=== PATIENT | female | born 1935 | race Caucasian/White ===

== ENCOUNTER 2018-04-02 14:37 | Inpatient (IN) ==
[2018-04-02] MEDS ORDERED: Ipratropium/Albuterol Neb 3 ML IH PRN (16:06)
[2018-04-02] MEDS: *HR* Warfarin 5 MG TABLET PO SCH (17:08)
[2018-04-02] MEDS: Vancomycin Oral Soln 125 MG/2.5 ML UDC PO SCH ×2 (17:09→22:00)
[2018-04-03 06:50] LABS: Basophils % 0.3 %; Eosinophils # 0.2 K/mcL (0.0-0.6); Eosinophils % 3.6 %; Hematocrit 27.4 % (35.3-44.9); Hemoglobin 9.4 g/dL (11.5-15.4); Immature Granulocytes % 0.3 % (0-4); Lymphocytes # 1.4 K/mcL (0.6-4.6); Lymphocytes % 21.4 %; Mean Corpuscular HGB Conc 34.3 g/dL (31.6-35.5); Mean Corpuscular Hemoglobin 34.9 pg (28.0-33.3); Mean Corpuscular Volume 101.9 fL (83.0-100.0); Mean Platelet Volume 10.7 fL (9.4-12.4); Monocytes # 0.4 K/mcL (0.0-1.3); Monocytes % 6.7 %; Neutrophils # 4.4 K/mcL (1.6-8.9); Platelet Count 210 K/mcL (140-400); Red Blood Count 2.69 M/mcL (3.82-4.97); Red Cell Distribution Width 17.6 % (11.5-14.5); Segmented Neutrophils % 67.7 %
[2018-04-03 07:09] LABS: Activated Partial Thrombo Time 41.9 Seconds (26.0-36.0)
[2018-04-03 07:12] LABS: BUN/Creatinine Ratio 17 (6-26); Blood Urea Nitrogen 8 mg/dL (8-23); Calcium 8.4 mg/dL (8.6-10.3); Carbon Dioxide 35 mEq/L (23-29); Chloride 96 mEq/L (98-107); Glucose 103 mg/dL (70-105); Osmolality,Calculated 279 (280-300); Potassium 4.2 mEq/L (3.5-5.1); Sodium 135 mEq/L (136-145); eGFR For Non-African Americans > 60 (> 60)
[2018-04-03 07:14] LABS: INR 2.8
[2018-04-03] MEDS ORDERED: Loratadine 10 MG TABLET PO SCH (09:00)
[2018-04-03] MEDS: Multivit/Ca/Min/Fe/FA 1 TAB TABLET PO SCH (09:08)
[2018-04-03] MEDS: Furosemide 40 MG TABLET PO SCH (09:09)
[2018-04-03] MEDS: Aspirin Enteric Coated 81 MG Tablet PO SCH (09:10)
[2018-04-03] MEDS: Vancomycin Oral Soln 125 MG/2.5 ML UDC PO SCH ×4 (09:10→20:50)
[2018-04-03] MEDS: Diltiazem CD (24hr) 180 MG CAPSULE PO SCH (09:10)
--- NOTE | 2018-04-03 12:08 | Internal Med History&Physical ---
Date of Encounter: 04/03/18 Time of Encounter: 11:35 Assessment and Plan (1) Congestive heart failure Current visit: No Status: Acute Continue Cozaar and Lasix. Qualifiers: Heart failure type: diastolic Heart failure chronicity: acute on chronic Qualified Code(s): I50.33 - Acute on chronic diastolic (congestive) heart failure (2) Atrial fibrillation with RVR Current visit: No Status: Acute Continue Cardizem for rate control and Coumadin for CVA prophylaxis. (3) C. difficile colitis Current visit: No Status: Acute Continue oral vancomycin through April 08. (4) Physical deconditioning Current visit: No Status: Acute Physical therapy and occupational therapy evaluations with ongoing interventions have been ordered. (5) DVT (deep venous thrombosis) Current visit: No Status: Acute Continue Coumadin Qualifiers: DVT location: upper extremity Affected thrombotic vein of extremity: axillary Chronicity: acute Laterality: right Qualified Code(s): I82.A11 - Acute embolism and thrombosis of right axillary vein (6) Anemia Current visit: No Status: Acute Check anemia testing in a.m. Monitor CBC. Qualifiers: Anemia type: unspecified type Qualified Code(s): D64.9 - Anemia, unspecified Internal Medicine - H&P: HPI Chief complaint: DVT, AF, C. difficile Admitted From: Hospital to Hospital Transfer Plans for Post Hospital Care: Home History of present illness: Ms. Abebe is a 82 year old female who was hospitalized at [facility] March 07-April 02 after presenting with worsening abdominal discomfort in a ventral wall hernia. She had robotic surgical repair March 08. She required a second surgery March 23 for incisional hernia. Her stay was complicated by development of DVT at the PICC insertion site. She had new onset atrial fibrillation. She also developed C. difficile colitis. Following stabilization she was discharged to [facility] swing bed for ongoing care needs. She states she feels weak at the present time but denies significant pain or dyspnea. Past Med Surg Social Fam HX - Past Medical History Medical history: hyperlipidemia, hypertension, other Additional medical history: artifical heart valve Psychiatric history: no psych history - Past Surgical History Surgical History: non-contributory, heart valve replacement Additional surgical history: OvR - Social History Smoking Status: Never smoker Smokeless Tobacco Status: No Alcohol use: occasionally Drug use: none - Family History Mother Adopted: No Family Member Ethnicity: Non- Living Status: Hx Family Cardiac Disorders: Yes (Passed during valve replacement surgery) Hx Family Respiratory Disorders: No Hx Family Cancer: No Hx Family GI Disorders: No Hx Family Genitourinary Disorders: No Hx Family Endocrine Disorder: No Hx Family Musculoskeletal Disorders: No Hx Family Neuromuscular Disorders: No Hx Family Neurologic Disorders: No Hx Family HEENT Disorders: No Hx Family Autoimmune Disorders: No Hx Family Reproductive Disorders: No Hx Family Psychosocial Disorders: No Hx Family Medical Disorders: No Internal Medicine - H&P: Meds Aspirin [Lo-Dose Aspirin EC] 81 mg PO DAILY 03/02/18 [History] Atorvastatin [Lipitor] 20 mg PO HS 03/02/18 [History] Lidocaine Patch [Lidoderm 5% patch] 1 each TP DAILY PRN #30 adh..patch 03/02/18 [Rx] Loratadine [Allergy Relief] 10 mg PO DAILY 03/02/18 [History] Multivit-Min/FA/Lycopen/Lutein [Adults 50+ Multivitamin Tablet] 1 tab PO DAILY 03/02/18 [History] Diltiazem CD (24hr) [Cardizem CD] 180 mg PO DAILY #30 cap.er.24h 04/02/18 [Rx] Docusate [Colace] 100 mg PO BID PRN capsule 04/02/18 [Rx] Ferrous Sulfate 325 mg PO DAILY@0800 #30 tablet 04/02/18 [Rx] Furosemide [Lasix] 20 mg PO DAILY #30 tablet 04/02/18 [Rx] Ipratropium/Albuterol Neb [Duoneb] 3 ml IH [id number] PRN inhsol 04/02/18 [Rx] Losartan [Cozaar] 25 mg PO DAILY #0 tablet 04/02/18 [Rx] Vancomycin Oral Soln [Firvanq] 125 mg PO QID 7 Days #28 udc 04/02/18 [Rx] Warfarin [Coumadin] 2.5 mg PO 1800 #7 tablet 04/02/18 [Rx] 3 Allergy/AdvReac Type Severity Reaction Status Date / Time lisinopril AdvReac Cough Verified 03/06/18 20:08 All Systems PM: A 10-system review of systems was performed and is negative for pertinent findings except as documented above in the HPI. Review of systems: Gen.: Her weight has decreased from 61.915 kg in May 2015 to 56.784 kg on admission now. Cardiovascular: She has hypertension. She had a heart catheterization November 2014 at [facility] which showed no significant coronary artery disease requiring intervention. She had aortic stenosis and TAVR was performed. She denies heart failure [place] or pulmonary embolism. She had recent right arm DVT at site of PICC line. Echocardiogram 03/11/2018 showed LVEF of 55% with normal functioning aortic valve (status post TAVR). There was mild mitral stenosis and mild LV diastolic dysfunction reported. Respiratory: She smoked from age [age] up to 1 pack per day. She does not have known lung disease or were oxygen at home. She has not been tested for sleep apnea. 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 She is status post appendectomy. She had recent hernia surgeries as per history of present illness. She developed C. difficile postoperatively. : She has had UTIs in the past but denies other kidney or bladder disorders Neurologic: She denies large distribution strokes or seizures. Endocrine: She has hyperlipidemia but denies diabetes or thyroid disease Hematology/oncology: she denies blood disorders or cancers . She had recent anemia requiring blood transfusion. Psychiatric: she denies anxiety depression or other mental health issues Musk skeletal: she denies arthritis gout or osteoporosis. She has had bilateral wrist fracture repair. - Constitutional Vitals: Temp Pulse Resp BP Pulse Ox 97.9 F 110 15 118/70 95 04/02/18 19:14 04/03/18 10:30 04/02/18 19:14 04/03/18 09:05 04/03/18 10:30 Exam: Gen.: She is well developed well-nourished female resting comfortably in a chair at bedside who appears in no acute distress HEENT: Head is atraumatic and normal cephalic. Eyes: EOMI. There is no scleral icterus. Mouth: Mucosa is moist. Neck: Supple and nontender. There is no thyromegaly or adenopathy noted. Heart: Regular without murmurs gallops or ectopics. Rate is approximately 108/ m. Lungs: No wheezes or crackles are heard. Abdomen: Soft and nontender. No masses or guarding are noted. Exam is limited because she is in the seated position. She has ecchymosis in the lower abdominal wall. She has a healing incision the left abdominal area from recent surgery. Extremities: She is wearing DIANE hose bilaterally. There is no pitting edema palpated through the hose. 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 Neurologic: Mental status: She is talkative and a good historian. Cranial nerves: Smile is symmetric. Forehead wrinkles bilaterally. Tongue protrudes midline. EOMI. Motor: There is no pronator drift. Cerebellar: Finger to nose is intact bilaterally. Skin: Warm and dry Internal Med - H&P Results - Labs CBC & Chem 7: 04/03/18 06:30 04/03/18 06:30 Labs: Short CBC 04/03/18 Range/Units 06:30 WBC 6.5 (4.3-11.1) K/mcL Hgb 9.4 L (11.5-15.4) g/dL Hct 27.4 L (35.3-44.9) % Plt Count 210 (140-400) K/mcL Neutrophils # 4.4 (1.6-8.9) K/mcL BMP 04/03/18 06:30 Sodium 135 L Potassium 4.2 Chloride 96 L Carbon Dioxide 35 H BUN 8 Creatinine 0.46 L Glucose 103 Calcium 8.4 L - VTE Documentation of Mechanical Device: Graduated compression elastic hosiery
[2018-04-03] MEDS: *HR* Warfarin 5 MG TABLET PO SCH (16:43)
[2018-04-04 06:01] LABS: Basophils % 0.4 %; Eosinophils # 0.3 K/mcL (0.0-0.6); Eosinophils % 4.4 %; Hematocrit 28.9 % (35.3-44.9); Hemoglobin 10.4 g/dL (11.5-15.4); Immature Granulocytes % 0.5 % (0-4); Lymphocytes # 2.2 K/mcL (0.6-4.6); Lymphocytes % 30.2 %; Mean Corpuscular Hemoglobin 36.9 pg (28.0-33.3); Mean Corpuscular Volume 102.5 fL (83.0-100.0); Mean Platelet Volume 11.1 fL (9.4-12.4); Monocytes # 0.5 K/mcL (0.0-1.3); Monocytes % 6.2 %; Neutrophils # 4.3 K/mcL (1.6-8.9); Platelet Count 258 K/mcL (140-400); Red Blood Count 2.82 M/mcL (3.82-4.97); Red Cell Distribution Width 18.1 % (11.5-14.5); Segmented Neutrophils % 58.3 %
[2018-04-04 06:06] LABS: INR 2.7; Prothrombin Time 30.7 Seconds (9.4-12.1)
[2018-04-04 06:19] LABS: Alanine Aminotransferase 53 Units/L (7-52); Albumin 2.9 g/dL (3.5-5.7); Albumin/Globulin Ratio 0.8 (1.1-2.2); Alkaline Phosphatase 108 Units/L (34-104); Aspartate Amino Transferase 31 Units/L (13-39); BUN/Creatinine Ratio 24 (6-26); Bilirubin,Total 0.9 mg/dL (0.3-1.0); Blood Urea Nitrogen 11 mg/dL (8-23); Calcium 8.8 mg/dL (8.6-10.3); Carbon Dioxide 33 mEq/L (23-29); Chloride 93 mEq/L (98-107); Globulin 3.5 g/dL (2.4-3.5); Glucose 92 mg/dL (70-105); Magnesium 1.9 mg/dL (1.6-2.6); Osmolality,Calculated 273 (280-300); Potassium 3.8 mEq/L (3.5-5.1); Sodium 132 mEq/L (136-145); Total Protein 6.4 g/dL (6.4-8.9); eGFR For Non-African Americans > 60 (> 60)
[2018-04-04 09:04] LABS: % Iron Saturation 11 % (15-50); Iron 30 mcg/dL (50-170); Transferrin 197 mg/dL (203-362)
[2018-04-04 09:22] LABS: Ferritin 506 ng/mL (10-120)
[2018-04-04 09:28] LABS: Folate 16.3 ng/mL (3.0-16.0)
[2018-04-04] MEDS: Furosemide 40 MG TABLET PO SCH (10:06)
[2018-04-04] MEDS: Vancomycin Oral Soln 125 MG/2.5 ML UDC PO SCH ×4 (10:06→21:22)
[2018-04-04] MEDS: Diltiazem CD (24hr) 180 MG CAPSULE PO SCH (10:06)
[2018-04-04] MEDS: Multivit/Ca/Min/Fe/FA 1 TAB TABLET PO SCH (10:06)
[2018-04-04] MEDS: Aspirin Enteric Coated 81 MG Tablet PO SCH (10:07)
[2018-04-04] MEDS: *HR* Warfarin 5 MG TABLET PO SCH (17:11)
--- NOTE | 2018-04-04 17:38 | Internal Med Progress Note ---
Date of Encounter: 04/04/18 Time of Encounter: 17:30 - Assessment and plan (1) Congestive heart failure Current Visit: No Status: Acute Assessment and plan: April 04. Continue Lasix. Will decrease Cozaar and use low-dose Toprol to better control heart rate. Qualifiers: Heart failure type: diastolic Heart failure chronicity: acute on chronic Qualified Code(s): I50.33 - Acute on chronic diastolic (congestive) heart failure (2) Atrial fibrillation with RVR Current Visit: No Status: Acute Assessment and plan: April 04. Continue Cardizem and Coumadin. Add low-dose Toprol (3) C. difficile colitis Current Visit: No Status: Acute Assessment and plan: April 04. Continue oral vancomycin through April 08. (4) Physical deconditioning Current Visit: No Status: Acute Assessment and plan: April 04. Continue therapy interventions (5) DVT (deep venous thrombosis) Current Visit: No Status: Acute Assessment and plan: April 04. Continue Coumadin Qualifiers: DVT location: upper extremity Affected thrombotic vein of extremity: axillary Chronicity: acute Laterality: right Qualified Code(s): I82.A11 - Acute embolism and thrombosis of right axillary vein (6) Anemia Current Visit: No Status: Acute Assessment and plan: April 04. Anemia testing showed iron 30, transferrin saturation 11%, transferrin 197, ferritin 506, B12 990, and folate 16.3. Hemoglobin improved to 10.4. Observe Qualifiers: Anemia type: unspecified type Qualified Code(s): D64.9 - Anemia, unspecified - Subjective Interval history: April 04. She has no new complaints. - Constitutional Vitals: Temp Pulse Resp BP Pulse Ox 98.1 F 98 15 125/69 92 04/04/18 08:32 04/04/18 08:32 04/04/18 08:32 04/04/18 08:32 04/04/18 08:32 Exam: She is sitting in a chair at bedside resting comfortably. Her affect is bright and cheerful. I reviewed her medications and lab results. Internal Medicine: Result - Labs CBC & Chem 7: 04/04/18 04:36 04/04/18 04:36 Labs: Short CBC 04/04/18 Range/Units 04:36 WBC 7.3 (4.3-11.1) K/mcL Hgb 10.4 L (11.5-15.4) g/dL Hct 28.9 L (35.3-44.9) % Plt Count 258 (140-400) K/mcL Neutrophils # 4.3 (1.6-8.9) K/mcL BMP 04/04/18 04:36 Sodium 132 L Potassium 3.8 Chloride 93 L Carbon Dioxide 33 H BUN 11 Creatinine 0.45 L Glucose 92 Calcium 8.8 Liver Function 04/04/18 Range/Units 04:36 Total Bilirubin 0.9 (0.3-1.0) mg/dL AST 31 (13-39) Units/L ALT 53 H (7-52) Units/L Alkaline Phosphatase 108 H (34-104) Units/L Albumin 2.9 L (3.5-5.7) g/dL - ABG Interpretation ABG results: PT/INR, D-dimer PT 30.7 Seconds (9.4-12.1) H 04/04/18 04:36 - VTE Documentation of Mechanical Device: Graduated compression elastic hosiery Consult Discharge Plan - Plan Referrals: Judith Rousseau MD [Primary Care Provider] - 1 week
[2018-04-04] MEDS: Metoprolol XL (24 HR) Succ 25 MG TAB.ER.24H PO SCH (18:13)
[2018-04-05] MEDS: Aspirin Enteric Coated 81 MG Tablet PO SCH (09:51)
[2018-04-05] MEDS: Metoprolol XL (24 HR) Succ 25 MG TAB.ER.24H PO SCH (09:51)
[2018-04-05] MEDS: Diltiazem CD (24hr) 180 MG CAPSULE PO SCH (09:51)
[2018-04-05] MEDS: Multivit/Ca/Min/Fe/FA 1 TAB TABLET PO SCH (09:51)
[2018-04-05] MEDS: Vancomycin Oral Soln 125 MG/2.5 ML UDC PO SCH ×4 (09:51→21:23)
[2018-04-05] MEDS: Furosemide 40 MG TABLET PO SCH (09:51)
[2018-04-05] MEDS: *HR* Warfarin 5 MG TABLET PO SCH (16:33)
[2018-04-06] MEDS: Vancomycin Oral Soln 125 MG/2.5 ML UDC PO SCH ×4 (08:27→22:20)
[2018-04-06] MEDS: Furosemide 40 MG TABLET PO SCH (08:27)
[2018-04-06] MEDS: Multivit/Ca/Min/Fe/FA 1 TAB TABLET PO SCH (08:28)
[2018-04-06] MEDS: Aspirin Enteric Coated 81 MG Tablet PO SCH (08:28)
[2018-04-06] MEDS: Diltiazem CD (24hr) 180 MG CAPSULE PO SCH (08:28)
[2018-04-06] MEDS: Metoprolol XL (24 HR) Succ 25 MG TAB.ER.24H PO SCH (08:28)
[2018-04-06] MEDS: Furosemide 20 MG TABLET PO SCH (09:00)
--- NOTE | 2018-04-06 14:28 | Internal Med Progress Note ---
Date of Encounter: 04/06/18 Time of Encounter: 14:20 - Assessment and plan (1) Congestive heart failure Current Visit: No Status: Acute Assessment and plan: April 04. Continue Lasix. Will decrease Cozaar and use low-dose Toprol to better control heart rate. Qualifiers: Heart failure type: diastolic Heart failure chronicity: acute on chronic Qualified Code(s): I50.33 - Acute on chronic diastolic (congestive) heart failure (2) Atrial fibrillation with RVR Current Visit: No Status: Acute Assessment and plan: April 04. Continue Cardizem and Coumadin. Add low-dose Toprol April 06. Ventricular rate more controlled with Toprol. Continue Cardizem and Coumadin also. (3) C. difficile colitis Current Visit: No Status: Acute Assessment and plan: April 04. Continue oral vancomycin through April 08. (4) Physical deconditioning Current Visit: No Status: Acute Assessment and plan: April 04. Continue therapy interventions (5) DVT (deep venous thrombosis) Current Visit: No Status: Acute Assessment and plan: April 04. Continue Coumadin Qualifiers: DVT location: upper extremity Affected thrombotic vein of extremity: axillary Chronicity: acute Laterality: right Qualified Code(s): I82.A11 - Acute embolism and thrombosis of right axillary vein (6) Anemia Current Visit: No Status: Acute Assessment and plan: April 04. Anemia testing showed iron 30, transferrin saturation 11%, transferrin 197, ferritin 506, B12 990, and folate 16.3. Hemoglobin improved to 10.4. Observe Qualifiers: Anemia type: unspecified type Qualified Code(s): D64.9 - Anemia, unspecified - Subjective Interval history: April 04. She has no new complaints. April 06. She has no new complaints. She feels she is making progress slowly in therapy. - Constitutional Vitals: Temp Pulse Resp BP Pulse Ox 98.4 F 84 18 95/55 95 04/06/18 07:01 04/06/18 07:01 04/06/18 07:01 04/06/18 07:01 04/06/18 07:01 Exam: She is resting comfortably in bed and appears in no acute distress. Her affect is bright and cheerful. I reviewed her medications and lab results. Internal Medicine: Result - Labs CBC & Chem 7: 04/04/18 04:36 04/04/18 04:36 - ABG Interpretation ABG results: PT/INR, D-dimer PT 30.7 Seconds (9.4-12.1) H 04/04/18 04:36 - VTE Documentation of Mechanical Device: Graduated compression elastic hosiery Consult Discharge Plan - Plan Referrals: Judith Rousseau MD [Primary Care Provider] - 1 week
[2018-04-06] MEDS: *HR* Warfarin 5 MG TABLET PO SCH (17:31)
[2018-04-07] MEDS: Multivit/Ca/Min/Fe/FA 1 TAB TABLET PO SCH (08:38)
[2018-04-07] MEDS: Vancomycin Oral Soln 125 MG/2.5 ML UDC PO SCH ×4 (08:38→21:18)
[2018-04-07] MEDS: Aspirin Enteric Coated 81 MG Tablet PO SCH (08:39)
[2018-04-07] MEDS: Furosemide 20 MG TABLET PO SCH (08:39)
[2018-04-07] MEDS: Metoprolol XL (24 HR) Succ 25 MG TAB.ER.24H PO SCH (09:06)
[2018-04-07] MEDS: Diltiazem CD (24hr) 180 MG CAPSULE PO SCH (09:06)
[2018-04-07] MEDS: *HR* Warfarin 5 MG TABLET PO SCH (17:06)
[2018-04-08] MEDS: Vancomycin Oral Soln 125 MG/2.5 ML UDC PO SCH ×4 (09:57→21:36)
[2018-04-08] MEDS: Metoprolol XL (24 HR) Succ 25 MG TAB.ER.24H PO SCH (09:57)
[2018-04-08] MEDS: Furosemide 20 MG TABLET PO SCH (09:58)
[2018-04-08] MEDS: Multivit/Ca/Min/Fe/FA 1 TAB TABLET PO SCH (09:58)
[2018-04-08] MEDS: Diltiazem CD (24hr) 180 MG CAPSULE PO SCH (09:58)
[2018-04-08] MEDS: Aspirin Enteric Coated 81 MG Tablet PO SCH (09:58)
--- NOTE | 2018-04-08 12:43 | Internal Med Progress Note ---
Date of Encounter: 04/08/18 Time of Encounter: 12:35 - Assessment and plan (1) Congestive heart failure Current Visit: No Status: Acute Assessment and plan: April 04. Continue Lasix. Will decrease Cozaar and use low-dose Toprol to better control heart rate. Qualifiers: Heart failure type: diastolic Heart failure chronicity: acute on chronic Qualified Code(s): I50.33 - Acute on chronic diastolic (congestive) heart failure (2) Atrial fibrillation with RVR Current Visit: No Status: Acute Assessment and plan: April 04. Continue Cardizem and Coumadin. Add low-dose Toprol April 06. Ventricular rate more controlled with Toprol. Continue Cardizem and Coumadin also. (3) C. difficile colitis Current Visit: No Status: Acute Assessment and plan: April 04. Continue oral vancomycin through April 08. April 08. Discontinue vancomycin (4) Physical deconditioning Current Visit: No Status: Acute Assessment and plan: April 04. Continue therapy interventions (5) DVT (deep venous thrombosis) Current Visit: No Status: Acute Assessment and plan: April 04. Continue Coumadin Qualifiers: DVT location: upper extremity Affected thrombotic vein of extremity: axillary Chronicity: acute Laterality: right Qualified Code(s): I82.A11 - Acute embolism and thrombosis of right axillary vein (6) Anemia Current Visit: No Status: Acute Assessment and plan: April 04. Anemia testing showed iron 30, transferrin saturation 11%, transferrin 197, ferritin 506, B12 990, and folate 16.3. Hemoglobin improved to 10.4. Observe Qualifiers: Anemia type: unspecified type Qualified Code(s): D64.9 - Anemia, unspecified - Subjective Interval history: April 04. She has no new complaints. April 06. She has no new complaints. She feels she is making progress slowly in therapy. April 08. She has no new complaints. She states she still feels tired today after an intensive therapy session on April 06. She expresses down about being able to care for herself in the home environment in the near future. She inquired if [facility] would be an option for longer care if she is discharged from swing bed. - Constitutional Vitals: Temp Pulse Resp BP Pulse Ox 97.6 F 108 16 133/69 99 04/08/18 06:58 04/08/18 06:58 04/08/18 06:58 04/08/18 06:58 04/08/18 06:58 Exam: She is sitting in a chair at bedside resting comfortably. Her affect is bright and cheerful. I reviewed her medications and lab results. Internal Medicine: Result - Labs CBC & Chem 7: 04/04/18 04:36 04/04/18 04:36 - ABG Interpretation ABG results: PT/INR, D-dimer PT 30.7 Seconds (9.4-12.1) H 04/04/18 04:36 - VTE Documentation of Mechanical Device: Graduated compression elastic hosiery Consult Discharge Plan - Plan Referrals: Judith Rousseau MD [Primary Care Provider] - 1 week
[2018-04-08] MEDS: *HR* Warfarin 5 MG TABLET PO SCH (18:12)
[2018-04-09 05:56] LABS: Hematocrit 28.4 % (35.3-44.9); Hemoglobin 9.7 g/dL (11.5-15.4); Mean Corpuscular HGB Conc 34.2 g/dL (31.6-35.5); Mean Corpuscular Hemoglobin 34.9 pg (28.0-33.3); Mean Corpuscular Volume 102.2 fL (83.0-100.0); Mean Platelet Volume 10.5 fL (9.4-12.4); Platelet Count 352 K/mcL (140-400); Red Blood Count 2.78 M/mcL (3.82-4.97); Red Cell Distribution Width 16.9 % (11.5-14.5)
[2018-04-09 06:05] LABS: INR 2.8; Prothrombin Time 31.1 Seconds (9.4-12.1)
[2018-04-09 06:17] LABS: Alanine Aminotransferase 19 Units/L (7-52); Albumin 2.7 g/dL (3.5-5.7); Albumin/Globulin Ratio 0.8 (1.1-2.2); Alkaline Phosphatase 71 Units/L (34-104); Aspartate Amino Transferase 23 Units/L (13-39); BUN/Creatinine Ratio 24 (6-26); Bilirubin,Total 1.1 mg/dL (0.3-1.0); Blood Urea Nitrogen 13 mg/dL (8-23); Calcium 8.3 mg/dL (8.6-10.3); Carbon Dioxide 34 mEq/L (23-29); Chloride 95 mEq/L (98-107); Globulin 3.2 g/dL (2.4-3.5); Glucose 87 mg/dL (70-105); Osmolality,Calculated 273 (280-300); Potassium 4.1 mEq/L (3.5-5.1); Sodium 132 mEq/L (136-145); Total Protein 5.9 g/dL (6.4-8.9); eGFR For Non-African Americans > 60 (> 60)
[2018-04-09 06:48] LABS: Eosinophils # 0.3 K/mcL (0.0-0.6); Lymphocytes # 1.3 K/mcL (0.6-4.6); Monocytes # 0.2 K/mcL (0.0-1.3); Neutrophils # 3.6 K/mcL (1.6-8.9)
[2018-04-09 06:50] LABS: Anisocytosis 1+ (Not Present); Large Platelets Present (Not Present); Platelet Estimate Normal (Normal); Stomatocytes 1+ (Not Present); Toxic Granulation Present (Not Present); Toxic Vacuolation Present (Not Present)
[2018-04-09 06:51] LABS: Polychromasia 1+ (Not Present)
[2018-04-09] MEDS: Diltiazem CD (24hr) 180 MG CAPSULE PO SCH (08:36)
[2018-04-09] MEDS: Multivit/Ca/Min/Fe/FA 1 TAB TABLET PO SCH (08:36)
[2018-04-09] MEDS: Vancomycin Oral Soln 125 MG/2.5 ML UDC PO SCH (08:36)
[2018-04-09] MEDS: Metoprolol XL (24 HR) Succ 25 MG TAB.ER.24H PO SCH (08:37)
[2018-04-09] MEDS: Furosemide 20 MG TABLET PO SCH (08:37)
[2018-04-09] MEDS: Aspirin Enteric Coated 81 MG Tablet PO SCH (08:37)
[2018-04-09] MEDS: *HR* Warfarin 5 MG TABLET PO SCH (17:49)
[2018-04-10 07:24] VITALS: BP 119/58
[2018-04-10] MEDS: Diltiazem CD (24hr) 180 MG CAPSULE PO SCH (07:57)
[2018-04-10] MEDS: Multivit/Ca/Min/Fe/FA 1 TAB TABLET PO SCH (07:57)
[2018-04-10] MEDS: Metoprolol XL (24 HR) Succ 25 MG TAB.ER.24H PO SCH (07:58)
[2018-04-10] MEDS: Furosemide 20 MG TABLET PO SCH (08:02)
[2018-04-10] MEDS: Aspirin Enteric Coated 81 MG Tablet PO SCH (08:02)
--- NOTE | 2018-04-10 11:01 | Discharge Summary ---
Date of Encounter: 04/10/18 Time of Encounter: 10:45 - Discharge Diagnosis (1) Congestive heart failure Priority: Primary Status: Acute Qualifiers: Heart failure type: diastolic Heart failure chronicity: acute on chronic Qualified Code(s): I50.33 - Acute on chronic diastolic (congestive) heart failure (2) Atrial fibrillation with RVR Priority: Secondary Status: Acute (3) C. difficile colitis Priority: Secondary Status: Resolved (4) Physical deconditioning Priority: Secondary Status: Chronic (5) DVT (deep venous thrombosis) Priority: Secondary Status: Acute Qualifiers: DVT location: upper extremity Affected thrombotic vein of extremity: axillary Chronicity: acute Laterality: right Qualified Code(s): I82.A11 - Acute embolism and thrombosis of right axillary vein (6) Anemia Priority: Secondary Status: Acute Qualifiers: Anemia type: unspecified type Qualified Code(s): D64.9 - Anemia, unspecified Hospital course: Ms. Abebe is a 82 year old female who was hospitalized at [facility] March 07-April 02 after presenting with worsening abdominal discomfort in a ventral wall hernia. She had robotic surgical repair March 08. She required a second surgery March 23 for incisional hernia. Her stay was complicated by development of DVT at the PICC insertion site. She had new onset atrial fibrillation. She also developed C. difficile colitis. Following stabilization she was discharged to [facility] swing bed for ongoing care needs. Initial orders were written by the discharging physicians at [facility]. I saw her on April 03 and performed a swing bed history and physical. She initially continued medications as per discharge orders. After a few days in swing bed Cozaar was decreased and she was started on Toprol-XL for heart failure and to assist in control of RVR from atrial fibrillation. Cardizem was continued for rate control and Coumadin for CVA prophylaxis. She had clinical improvement overall in heart rate and heart failure symptoms. Vancomycin was continued through April 08. She was asymptomatic at time of discharge. Anemia testing showed iron 30, transferrin saturation 11%, transferrin 197, ferritin 506, B12 909, and folate 16.3. Ferrous sulfate will be discontinued. She complained of poor appetite and occasional nausea. Medication doses were reduced for several meds and this will be monitored. She felt she would need longer term care so she was transitioned from swing bed to [facility] for ongoing care needs. I will follow with her there. - Time Spent with Patient Total time spent providing and/or coordinating discharge services: - Discharge Medications Home Medications: Multivit-Min/FA/Lycopen/Lutein [Adults 50+ Multivitamin Tablet] 1 tab PO DAILY 03/02/18 [History] Diltiazem CD (24hr) [Cardizem CD] 180 mg PO DAILY #30 cap.er.24h 04/02/18 [Rx] Docusate [Colace] 100 mg PO BID PRN capsule 04/02/18 [Rx] Furosemide [Lasix] 20 mg PO DAILY #30 tablet 04/02/18 [Rx] Ipratropium/Albuterol Neb [Duoneb] 3 ml IH [id number] PRN inhsol 04/02/18 [Rx] Warfarin [Coumadin] 2.5 mg PO 1800 #7 tablet 04/02/18 [Rx] Aspirin [Lo-Dose Aspirin EC] 81 mg PO Q48H #0 04/10/18 [Rx] Atorvastatin [Lipitor] 10 mg PO HS #0 04/10/18 [Rx] Losartan [Cozaar] 12.5 mg PO DAILY 365 Days tablet 04/10/18 [Rx] Metoprolol XL (24 HR) Succ [Toprol Xl] 12.5 mg PO DAILY 365 Days tab.er.24h [Rx] Allergies/Adverse Reactions: 3 Allergy/AdvReac Type Severity Reaction Status Date / Time lisinopril AdvReac Cough Verified 03/06/18 20:08 Date of admission: 04/02/18 14:41 Primary care physician: Judith Rousseau Consults: 04/02/18 15:56 Consult to Occupational Therapy [CONS] Routine Comment: eval, develop, and implement POC Reason for Consult: eval, develop, and implement POC Does patient have active BEDREST order?: No Is patient medically & hemodynamically stable?: Yes Consult to Physical Therapy [CONS] Routine Comment: eval, develop, and implement POC Reason for Consult: eval, develop, and implement POC Does patient have active BEDREST order?: No Is patient medically & hemodynamically stable?: Yes Consult to Abalone Fisherman [CONS] Routine Reason for SW Consult: may need HH upon discharged - Constitutional Vitals: Temp Pulse Resp BP Pulse Ox 98.8 F 65 15 119/58 95 04/10/18 07:19 08/14/18 07:19 04/10/18 07:19 04/10/18 07:19 04/10/18 07:19 Exam: Unremarkable - Patient Status Disposition: Transfer SNF - Discharge Instructions - Diet and Activity Activity: as per physical therapy Diet: low salt diet - VTE Documentation of Mechanical Device: Graduated compression elastic hosiery
--- NOTE | 2018-04-10 11:09 | Physician Discharge Referral ---
ExtendedCare Referral Info Transfer To: [facility] Provider in Charge: Andrew Provider in Charge after Transfer: PCP (Andrew) - Diagnosis (1) Congestive heart failure Priority: Primary Status: Acute (2) Atrial fibrillation with RVR Priority: Secondary Status: Acute (3) C. difficile colitis Priority: Secondary Status: Resolved (4) Physical deconditioning Priority: Secondary Status: Chronic (5) DVT (deep venous thrombosis) Priority: Secondary Status: Acute (6) Anemia Priority: Secondary Status: Acute Prognosis: Good Aware of Diagnosis: Patient, Family Aware of Prognosis: Patient, Family - Transfer Medications Home Medications: Multivit-Min/FA/Lycopen/Lutein [Adults 50+ Multivitamin Tablet] 1 tab PO DAILY 03/02/18 [History] Diltiazem CD (24hr) [Cardizem CD] 180 mg PO DAILY #30 cap.er.24h 04/02/18 [Rx] Docusate [Colace] 100 mg PO BID PRN capsule 04/02/18 [Rx] Furosemide [Lasix] 20 mg PO DAILY #30 tablet 04/02/18 [Rx] Ipratropium/Albuterol Neb [Duoneb] 3 ml IH [id number] PRN inhsol 04/02/18 [Rx] Warfarin [Coumadin] 2.5 mg PO 1800 #7 tablet 04/02/18 [Rx] Aspirin [Lo-Dose Aspirin EC] 81 mg PO Q48H #0 04/10/18 [Rx] Atorvastatin [Lipitor] 10 mg PO HS #0 04/10/18 [Rx] Losartan [Cozaar] 12.5 mg PO DAILY 365 Days tablet 04/10/18 [Rx] Metoprolol XL (24 HR) Succ [Toprol Xl] 12.5 mg PO DAILY 365 Days tab.er.24h [Rx] Allergies/Adverse Reactions: 3 Allergy/AdvReac Type Severity Reaction Status Date / Time lisinopril AdvReac Cough Verified 03/06/18 20:08 - Respiratory Orders Smoking Cessation: Smoking cessation has been advised. For more information, call the [place] Tobacco Quit Line at 6-686-EUGK-NOW. - Lab Orders Lab Orders: Other (include drug levels w/frequency) (CBC with differential, PT/ INR, CMP in 3 days) - Rehabiliation Orders Rehab Orders: Evaluation for Physical Therapy, Evaluation for Occupational Therapy - Diet Orders Cardiac CERTIFICATION: I certify that the transfer of the above named patient to an Extended Care Facility is necessary for the continuing treatment of the diagnosis listed. The above information is true and accurate reflection of patient's current condition. Confidential - Redisclosure prohibited without a patient's written consent.
== END 2018-04-10 14:56 | DRG 292 ==
LOC: INPPIK 14:41
PROVIDERS: ADMIT Internal Medicine; ATTEND Internal Medicine

== ENCOUNTER 2020-06-19 23:36 | Inpatient (IN) ==
[2020-06-19] MEDS ORDERED: Ipratropium Neb 0.5 MG NEBULIZER IH ONE (23:50)
[2020-06-20 00:21] LABS: Basophils % 0.1 %; Eosinophils % 0.1 %; Hemoglobin 14.2 g/dL (11.5-15.4); Immature Granulocytes % 0.6 % (0-4); Lymphocytes # 3.3 K/mcL (0.6-4.6); Lymphocytes % 16.5 %; Mean Corpuscular HGB Conc 33.8 g/dL (31.6-35.5); Mean Corpuscular Hemoglobin 31.1 pg (28.0-33.3); Mean Corpuscular Volume 91.9 fL (83.0-100.0); Mean Platelet Volume 10.2 fL (9.4-12.4); Monocytes % 7.2 %; Neutrophils # 15.1 K/mcL (1.6-8.9); Platelet Count 275 K/mcL (140-400); Red Blood Count 4.57 M/mcL (3.82-4.97); Red Cell Distribution Width 14.6 % (11.5-14.5); Segmented Neutrophils % 75.5 %
[2020-06-20 00:24] LABS: Monocytes # 1.4 K/mcL (0.0-1.3)
[2020-06-20 00:31] LABS: INR 3.3; Prothrombin Time 36.4 Seconds (9.4-12.1)
[2020-06-20] MEDS ORDERED: methylPREDNISolone 125 MG/2 ML VIAL IVP ONE (00:31)
[2020-06-20] MEDS ORDERED: Azithromycin 500 MG in D5% in Water 250 ML IVPB ONE (00:31)
[2020-06-20 00:42] LABS: Alanine Aminotransferase 21 Units/L (7-52); Alkaline Phosphatase 78 Units/L (34-104); Aspartate Amino Transferase 26 Units/L (13-39); BUN/Creatinine Ratio 30 (6-26); Bilirubin,Total 0.6 mg/dL (0.3-1.0); Blood Urea Nitrogen 25 mg/dL (8-23); Calcium 8.8 mg/dL (8.6-10.3); Carbon Dioxide 25 mEq/L (23-29); Chloride 96 mEq/L (98-107); Glucose 129 mg/dL (70-105); Osmolality,Calculated 276 (280-300); Potassium 4.3 mEq/L (3.5-5.1); Sodium 130 mEq/L (136-145); Troponin I < 0.03 ng/mL (< 0.04); eGFR For African Americans > 60 (> 60); eGFR For Non-African Americans > 60 (> 60)
[2020-06-20] MEDS ORDERED: Ondansetron ODT 4 MG TAB.RAPDIS SL PRN (02:13)
[2020-06-20] MEDS ORDERED: Naloxone 0.4 MG/ML INJ IVP PRN (02:13)
[2020-06-20] MEDS ORDERED: Nitroglycerin 0.4 MG TAB.SUBL SL PRN (02:13)
[2020-06-20 08:01] LABS: Basophils % 0.1 %; Hematocrit 39.4 % (35.3-44.9); Hemoglobin 13.3 g/dL (11.5-15.4); Immature Granulocytes % 0.5 % (0-4); Lymphocytes % 7.4 %; Mean Corpuscular HGB Conc 33.8 g/dL (31.6-35.5); Mean Corpuscular Hemoglobin 30.6 pg (28.0-33.3); Mean Corpuscular Volume 90.8 fL (83.0-100.0); Mean Platelet Volume 10.3 fL (9.4-12.4); Monocytes # 0.2 K/mcL (0.0-1.3); Monocytes % 1.7 %; Platelet Count 230 K/mcL (140-400); Red Blood Count 4.34 M/mcL (3.82-4.97); Red Cell Distribution Width 14.4 % (11.5-14.5); Segmented Neutrophils % 90.3 %; White Blood Count 13.9 K/mcL (4.3-11.1)
[2020-06-20 08:04] LABS: INR 3.4; Neutrophils # 12.6 K/mcL (1.6-8.9); Prothrombin Time 38.4 Seconds (9.4-12.1)
[2020-06-20 08:07] LABS: Activated Partial Thrombo Time 38.7 Seconds (26.0-36.0)
[2020-06-20 08:15] LABS: BUN/Creatinine Ratio 30 (6-26); Blood Urea Nitrogen 21 mg/dL (8-23); Calcium 8.5 mg/dL (8.6-10.3); Carbon Dioxide 29 mEq/L (23-29); Chloride 92 mEq/L (98-107); Glucose 132 mg/dL (70-105); Osmolality,Calculated 271 (280-300); Potassium 4.6 mEq/L (3.5-5.1); Sodium 128 mEq/L (136-145); eGFR For African Americans > 60 (> 60); eGFR For Non-African Americans > 60 (> 60)
[2020-06-20] MEDS ORDERED: *HR* Warfarin 3 MG TABLET PO SCH (09:00)
[2020-06-20] MEDS ORDERED: Metoprolol XL (24 HR) Succ 25 MG TAB.ER.24H PO SCH (09:00)
[2020-06-20] MEDS ORDERED: DilTIAZem CD (24hr) 180 MG CAP.ER.24H PO SCH (09:00)
[2020-06-20] MEDS: Loratadine 10 MG TABLET PO SCH (09:32)
[2020-06-20] MEDS: Multivit/Ca/Min/Fe/FA 1 TAB TABLET PO SCH (09:32)
[2020-06-20] MEDS: Artificial Tears SOLN 15 ML BOTTLE BOTH EYES SCH (09:48)
[2020-06-20] MEDS: Ipratropium/Albuterol Neb 3 ML IH SCH ×3 (11:45→21:04)
[2020-06-20] MEDS: (Preservision Areds 2) PO SCH (13:14)
[2020-06-20] MEDS ORDERED: Warfarin perPT PO PRN (18:00)
[2020-06-20] MEDS: cefTRIAXone 1,000 MG in Water for inj. (sterile) 10 ML IVP SCH (21:39)
[2020-06-20] MEDS: Azithromycin 500 MG in 0.9 % Sodium Chloride 250 ML IVPB SCH (21:40)
[2020-06-21] MEDS: Ipratropium/Albuterol Neb 3 ML IH SCH (04:33)
[2020-06-21 06:58] LABS: Hematocrit 34.4 % (35.3-44.9); Hemoglobin 11.5 g/dL (11.5-15.4); Mean Corpuscular HGB Conc 33.4 g/dL (31.6-35.5); Mean Corpuscular Hemoglobin 30.8 pg (28.0-33.3); Mean Corpuscular Volume 92.2 fL (83.0-100.0); Mean Platelet Volume 10.9 fL (9.4-12.4); Platelet Count 214 K/mcL (140-400); Red Blood Count 3.73 M/mcL (3.82-4.97); Red Cell Distribution Width 14.5 % (11.5-14.5); White Blood Count 14.4 K/mcL (4.3-11.1)
[2020-06-21 07:12] LABS: INR 2.8; Prothrombin Time 31.9 Seconds (9.4-12.1)
[2020-06-21 07:20] LABS: Alanine Aminotransferase 14 Units/L (7-52); Albumin 3.2 g/dL (3.5-5.7); Albumin/Globulin Ratio 1.1 (1.1-2.2); Alkaline Phosphatase 57 Units/L (34-104); Aspartate Amino Transferase 16 Units/L (13-39); BUN/Creatinine Ratio 30 (6-26); Bilirubin,Total 0.8 mg/dL (0.3-1.0); Blood Urea Nitrogen 17 mg/dL (8-23); Calcium 8.1 mg/dL (8.6-10.3); Carbon Dioxide 30 mEq/L (23-29); Chloride 97 mEq/L (98-107); Glucose 87 mg/dL (70-105); Magnesium 2.1 mg/dL (1.6-2.6); Osmolality,Calculated 275 (280-300); Potassium 4.3 mEq/L (3.5-5.1); Sodium 132 mEq/L (136-145); Total Protein 6.2 g/dL (6.4-8.9); eGFR For African Americans > 60 (> 60); eGFR For Non-African Americans > 60 (> 60)
[2020-06-21] MEDS: (Preservision Areds 2) PO SCH (09:00)
[2020-06-21] MEDS ORDERED: Ipratropium/Albuterol Neb 3 ML IH PRN (09:25)
[2020-06-21] MEDS: Budesonide/Formoterol 160/4.5 1 PUFF INH IH SCH ×2 (09:38→22:23)
[2020-06-21] MEDS: Furosemide 40 MG TABLET PO SCH (10:18)
[2020-06-21] MEDS: Loratadine 10 MG TABLET PO SCH (10:19)
[2020-06-21] MEDS: Multivit/Ca/Min/Fe/FA 1 TAB TABLET PO SCH (10:19)
[2020-06-21] MEDS: Artificial Tears SOLN 15 ML BOTTLE BOTH EYES SCH (10:19)
[2020-06-21] MEDS ORDERED: *HR* Warfarin 2 MG TABLET PO ONE (18:00)
[2020-06-21] MEDS: Metoprolol XL (24 HR) Succ 25 MG TAB.ER.24H PO SCH (20:46)
[2020-06-21] MEDS: DilTIAZem CD (24hr) 180 MG CAP.ER.24H PO SCH (20:47)
[2020-06-21] MEDS: cefTRIAXone 1,000 MG in Water for inj. (sterile) 10 ML IVP SCH (20:48)
[2020-06-21] MEDS: Azithromycin 500 MG in 0.9 % Sodium Chloride 250 ML IVPB SCH (20:49)
[2020-06-22 08:32] LABS: INR 1.9; Prothrombin Time 21.6 Seconds (9.4-12.1)
[2020-06-22] MEDS: Furosemide 40 MG TABLET PO SCH (08:39)
[2020-06-22] MEDS: (Preservision Areds 2) PO SCH (08:39)
[2020-06-22] MEDS: Loratadine 10 MG TABLET PO SCH (08:39)
[2020-06-22] MEDS: Multivit/Ca/Min/Fe/FA 1 TAB TABLET PO SCH (08:39)
[2020-06-22] MEDS: Artificial Tears SOLN 15 ML BOTTLE BOTH EYES SCH (08:39)
[2020-06-22] MEDS: Budesonide/Formoterol 160/4.5 1 PUFF INH IH SCH ×2 (09:38→21:16)
[2020-06-22 12:35] LABS: Hematocrit 37.5 % (35.3-44.9); Hemoglobin 12.5 g/dL (11.5-15.4); Mean Corpuscular HGB Conc 33.3 g/dL (31.6-35.5); Mean Corpuscular Hemoglobin 30.9 pg (28.0-33.3); Mean Corpuscular Volume 92.6 fL (83.0-100.0); Mean Platelet Volume 10.8 fL (9.4-12.4); Platelet Count 221 K/mcL (140-400); Red Blood Count 4.05 M/mcL (3.82-4.97); Red Cell Distribution Width 14.5 % (11.5-14.5); White Blood Count 13.2 K/mcL (4.3-11.1)
[2020-06-22 12:51] LABS: BUN/Creatinine Ratio 27 (6-26); Blood Urea Nitrogen 17 mg/dL (8-23); Calcium 8.1 mg/dL (8.6-10.3); Carbon Dioxide 28 mEq/L (23-29); Chloride 96 mEq/L (98-107); Glucose 95 mg/dL (70-105); Osmolality,Calculated 277 (280-300); Sodium 133 mEq/L (136-145); eGFR For African Americans > 60 (> 60); eGFR For Non-African Americans > 60 (> 60)
[2020-06-22] MEDS ORDERED: *HR* Warfarin 3 MG TABLET PO ONE (18:00)
[2020-06-22] MEDS: Azithromycin 500 MG in 0.9 % Sodium Chloride 250 ML IVPB SCH (20:56)
[2020-06-22] MEDS: cefTRIAXone 1,000 MG in Water for inj. (sterile) 10 ML IVP SCH (20:56)
[2020-06-22] MEDS: Metoprolol XL (24 HR) Succ 25 MG TAB.ER.24H PO SCH (20:57)
[2020-06-22] MEDS: DilTIAZem CD (24hr) 180 MG CAP.ER.24H PO SCH (21:01)
[2020-06-23 06:10] LABS: Hemoglobin 11.6 g/dL (11.5-15.4); Mean Corpuscular HGB Conc 33.1 g/dL (31.6-35.5); Mean Corpuscular Hemoglobin 30.8 pg (28.0-33.3); Mean Corpuscular Volume 92.8 fL (83.0-100.0); Mean Platelet Volume 10.5 fL (9.4-12.4); Platelet Count 207 K/mcL (140-400); Red Blood Count 3.77 M/mcL (3.82-4.97); Red Cell Distribution Width 14.4 % (11.5-14.5); White Blood Count 10.9 K/mcL (4.3-11.1)
[2020-06-23 06:21] LABS: INR 1.7; Prothrombin Time 18.9 Seconds (9.4-12.1)
[2020-06-23 06:28] LABS: BUN/Creatinine Ratio 27 (6-26); Blood Urea Nitrogen 15 mg/dL (8-23); Calcium 7.8 mg/dL (8.6-10.3); Carbon Dioxide 30 mEq/L (23-29); Chloride 97 mEq/L (98-107); Glucose 95 mg/dL (70-105); Osmolality,Calculated 277 (280-300); Potassium 3.8 mEq/L (3.5-5.1); Sodium 133 mEq/L (136-145); eGFR For African Americans > 60 (> 60); eGFR For Non-African Americans > 60 (> 60)
[2020-06-23] MEDS: Multivit/Ca/Min/Fe/FA 1 TAB TABLET PO SCH (08:57)
[2020-06-23] MEDS: Loratadine 10 MG TABLET PO SCH (08:57)
[2020-06-23] MEDS: (Preservision Areds 2) PO SCH (08:58)
[2020-06-23] MEDS: Artificial Tears SOLN 15 ML BOTTLE BOTH EYES SCH (08:58)
[2020-06-23] MEDS: Budesonide/Formoterol 160/4.5 1 PUFF INH IH SCH ×2 (10:29→21:40)
[2020-06-23] MEDS ORDERED: *HR* Warfarin 3 MG TABLET PO ONE (18:17)
[2020-06-23] MEDS: DilTIAZem CD (24hr) 180 MG CAP.ER.24H PO SCH (20:52)
[2020-06-23] MEDS: Metoprolol XL (24 HR) Succ 25 MG TAB.ER.24H PO SCH ×2 (20:53→21:08)
[2020-06-23] MEDS: cefTRIAXone 1,000 MG in Water for inj. (sterile) 10 ML IVP SCH (20:54)
[2020-06-23] MEDS: Azithromycin 500 MG in 0.9 % Sodium Chloride 250 ML IVPB SCH (20:55)
[2020-06-24 02:23] VITALS: BP 103/59
[2020-06-24 07:49] LABS: INR 1.6; Prothrombin Time 18.1 Seconds (9.4-12.1)
[2020-06-24] MEDS: Multivit/Ca/Min/Fe/FA 1 TAB TABLET PO SCH (09:09)
[2020-06-24] MEDS: Loratadine 10 MG TABLET PO SCH (09:09)
[2020-06-24] MEDS: Furosemide 40 MG TABLET PO SCH (09:09)
[2020-06-24] MEDS: Artificial Tears SOLN 15 ML BOTTLE BOTH EYES SCH (09:15)
[2020-06-24] MEDS: (Preservision Areds 2) PO SCH (09:15)
[2020-06-24] MEDS: Budesonide/Formoterol 160/4.5 1 PUFF INH IH SCH (09:23)
== END 2020-06-24 12:20 | disposition home or self-care (01) | DRG 291 ==
LOC: INPPIK 23:36 → EMEROOPIK 23:36 → INPPIK 06-20 02:01
PROVIDERS: ADMIT Family Medicine; ATTEND Family Medicine